=== PATIENT | male | born 1945 | race Caucasian/White ===

== ENCOUNTER 2016-07-24 06:05 | Day surgery (SDC) | payer MEDICARE, OTHER ==
--- NOTE | ~2016-07-24 | EGD ---
EGD REPORT [facility] [address] [address] NAME: CORNELIUS DAUGHERTY : [birth year] STATUS : REG [facility]#: [id number] AGE: 70 ADM/REG DATE : 07/24/16 MR#: [id number] REPORT SERV DATE: 07/24/16 DICTATED BY: KARYN VICKERS DATE: 07/24/16 REPORT STATUS : Draft TRANSCRIBED BY: [facility] DATE: 07/24/16 [facility] Patient Name: Cornelius Daugherty Date of : 1945 Attending MD: KARYN VICKERS MD Procedure Date No Time: 07/24/2016 Procedure: Colonoscopy Indications: High risk colon cancer surveillance: Personal history of rectal cancer Referring MD: Tobin Lynn MD Medicines: Monitored Anesthesia Care Complications: No immediate complications. Procedure: Pre-Anesthesia Assessment: - ASA Grade Assessment: III - A patient with severe systemic disease. After I obtained informed consent, the scope was passed under direct vision. Throughout the procedure, the patient's blood pressure, pulse, and oxygen saturations were monitored continuously. The PCF [id number] was introduced through the sigmoid colostomy and advanced to the cecum, identified by appendiceal orifice and ileocecal valve. The colonoscopy was performed without difficulty. The patient tolerated the procedure well. The quality of the bowel preparation was fair. Findings: Two sessile polyps were found in the sigmoid colon. The polyps were 5 to 10 mm in size. These polyps were removed with a cold biopsy forceps. Resection and retrieval were complete. Impression: - Two 5 to 10 mm polyps in the sigmoid colon. Resected and retrieved. Recommendation: - Patient has a contact number available for emergencies. The signs and symptoms of potential delayed complications were discussed with the patient. Return to normal activities tomorrow. Written discharge instructions were provided to the patient. - Regular diet. - Continue present medications. - Repeat colonoscopy in 3 years for surveillance. - Return to GI clinic PRN. - Use constipation prep for next exam. Procedure Code(s): --- Professional --- EGD REPORT [facility] [address] [place] [address] NAME: CORNELIUS DAUGHERTY : [birth year] STATUS : REG [facility] [place] PAT#: [id number] AGE: 70 ADM/REG DATE : 07/24/16 MR#: [id number] REPORT SERV DATE: 07/24/16 DICTATED BY: KARYN VICKERS DATE: 07/24/16 REPORT STATUS : Draft TRANSCRIBED BY: [employer] DATE: 07/24/16 [id number], Colonoscopy through stoma; with biopsy, single or multiple Diagnosis Code(s): --- Professional --- D12.5, Benign neoplasm of sigmoid colon Z85.048, Personal history of other malignant neoplasm of rectum, rectosigmoid junction, and anus CPT copyright 2013 [employer]. All rights reserved. The codes documented in this report are preliminary and upon drum stock clerk review may be revised to meet current compliance requirements. KARYN VICKERS MD 07/24/2016 7:50 AM This report has been signed electronically. Number of Addenda: 0 Note Initiated On: 07/24/2016 6:51 AM Scope Withdrawal Time 0 hours 12 minutes 43 seconds [address] [facility] [place] [address]
[~2016-07-24 06:05] MED LIST: HYZAAR 100/25 T1 TAB PO; LEVOTHYROXIN137 MCG PO; NORV10 PO; SYN125 PO; ULTRAM50 PO; XALAT OPH
== END 2016-07-24 23:59 | disposition home health service (06) ==
LOC: DMU 06:05
PROVIDERS: Internal Medicine Gastroenterology
PROC: 0DBN8ZX Excision of Sigmoid Colon, Via Natural or Artificial Opening Endoscopic, Diagnostic (ICD-10-PCS; principal; 2016-07-24 07:30)
DX: D12.5 Benign neoplasm of sigmoid colon (principal); E03.9 Hypothyroidism, unspecified; G47.33 Obstructive sleep apnea (adult) (pediatric); M19.90 Unspecified osteoarthritis, unspecified site; I10 Essential (primary) hypertension; L40.9 Psoriasis, unspecified; Z85.048 Personal history of other malignant neoplasm of rectum, rectosigmoid junction, and anus; Z88.2 Allergy status to sulfonamides; Z88.8 Allergy status to other drugs, medicaments and biological substances; Z86.718 Personal history of other venous thrombosis and embolism; Z99.81 Dependence on supplemental oxygen; Z98.890 Other specified postprocedural states
CPT/HCPCS: 88305